=== PATIENT | male | born 1995 | race Caucasian/White ===

== ENCOUNTER 2018-08-12 12:30 | Emergency (ER) | payer MEDICAID, OTHER ==
--- NOTE | 2018-08-12 14:24 | ER Document Report ---
ED Hand/Wrist Injury - General Chief Complaint: Hand Injury Stated Complaint: HAND INJURY Time Seen by Provider: 08/12/18 14:13 Primary Care Provider: [facility] [Provider Group] - Follow up as needed Mode of Arrival: Ambulatory Information source: Patient Notes: 22-year-old male presented to ED for complaint of pain to his left hand and fifth finger. He states he hit his hand with a hammer about 2 hours before coming to the emergency room. He states he went to the [facility] first and they did a x-ray which he had a disc of. There is a fracture to the fifth metacarpal and the fifth PIP joint. TRAVEL OUTSIDE OF THE [place] IN LAST 30 DAYS: No - HPI Injury to: Hand, Small finger Onset: This afternoon Where: Home, Outdoors Timing: Still present Quality of pain: Achy, Sharp Severity: Moderate Pain Level: 4 Context: Other - Hit his hand with a hammer - Related Data Allergies/Adverse Reactions: No Known Allergies Allergy (Verified 08/12/18 12:34) Past Medical History - General Information source: Patient - Social History Smoking Status: Former Smoker Frequency of alcohol use: Social Drug Abuse: None Occupation: hazmat truck driver Lives with: Alone Family History: Reviewed & Not Pertinent Patient has suicidal ideation: No Patient has homicidal ideation: No - Past Medical History Cardiac Medical History: Reports: None Pulmonary Medical History: Reports: None EENT Medical History: Reports: None Neurological Medical History: Reports: None Endocrine Medical History: Reports: None Renal/ Medical History: Reports: None Malignancy Medical History: Reports None GI Medical History: Reports: None Musculoskeletal Medical History: Reports Hx Musculoskeletal Trauma Skin Medical History: Reports None Psychiatric Medical History: Reports: Hx Attention Deficit Hyperactivity Disorder Traumatic Medical History: Reports: Hx Fractures - Right ankle Infectious Medical History: Reports: None Past Surgical History: Reports: Hx Orthopedic Surgery - Right ankle - Immunizations Immunizations up to date: Yes Hx Diphtheria, Pertussis, Tetanus Vaccination: Yes Review of Systems - Review of Systems Constitutional: No symptoms reported EENT: No symptoms reported Cardiovascular: No symptoms reported Respiratory: No symptoms reported Gastrointestinal: No symptoms reported Genitourinary: No symptoms reported Male Genitourinary: No symptoms reported Musculoskeletal: Other - Left hand and fifth finger Skin: No symptoms reported Hematologic/Lymphatic: No symptoms reported Neurological/Psychological: No symptoms reported -: Yes All other systems reviewed and negative Physical Exam - Vital signs Vitals: Temp Pulse Resp BP Pulse Ox 98.3 F 74 16 137/75 H 97 08/12/18 12:40 08/12/18 12:40 08/12/18 12:40 08/12/18 12:40 08/12/18 12:40 Interpretation: Normal - General General appearance: Appears well, Alert - HEENT Head: Normocephalic, Atraumatic Eyes: Normal Pupils: PERRL - Respiratory Respiratory status: No respiratory distress Chest status: Nontender Breath sounds: Normal Chest palpation: Normal - Cardiovascular Rhythm: Regular Heart sounds: Normal auscultation Murmur: No - Abdominal Inspection: Normal Distension: No distension Bowel sounds: Normal Tenderness: Nontender Organomegaly: No organomegaly - Back Back: Normal, Nontender - Extremities General upper extremity: Normal color, Normal ROM, Normal temperature General lower extremity: Normal inspection, Nontender, Normal color, Normal ROM, Normal temperature, Normal weight bearing. No: Tavia's sign Hand: Tender, Ecchymosis, No evidence of human bite, No evidence of FB, Swelling. No: Abrasion, Deformity, Dislocation - Neurological Neuro grossly intact: Yes Cognition: Normal Orientation: AAOx4 Jude Coma Scale Eye Opening: Spontaneous [place] Coma Scale Verbal: Oriented [place] Coma Scale Motor: Obeys Commands Jude Coma Scale Total: 15 Speech: Normal Motor strength normal: LUE, RUE, LLE, RLE Sensory: Normal - Psychological Associated symptoms: Normal affect, Normal mood - Skin Skin Temperature: Warm Skin Moisture: Dry Skin Color: Normal Course - Re-evaluation Re-evalutation: 08/12/18 14:24 Patient had disc from x-rays from [facility]. He does have a boxer fracture as well as a fracture through the fifth PIP. Will splint with a boxer's. Patient was given instructions on elevation ice and ibuprofen. - Vital Signs Vital signs: Temp Pulse Resp BP Pulse Ox 98.3 F 76 16 111/66 100 08/12/18 12:40 08/12/18 15:06 08/12/18 15:06 08/12/18 15:06 08/12/18 15:06 Procedures - Immobilization Left Wrist Time completed: 14:20 Pre-Proc Neuro Vasc Exam: Normal Immobilizer type: Ulnar, Sling Performed by: PCT Post-Proc Neuro Vasc Exam: Normal Alignment checked and good: Yes Discharge - Discharge Clinical Impression: left 5th finger pip fracture Boxer's fracture Qualifiers: Encounter type: initial encounter Fracture type: closed Qualified Code(s): S62.339A - Displaced fracture of neck of unspecified metacarpal bone, initial encounter for closed fracture Condition: Stable Disposition: HOME, SELF-CARE Additional Instructions: Fractured Fifth Metacarpal (Boxer's) You have a fracture of the fifth metacarpal bone in the hand, often called a Boxer's Fracture. The fracture is usually caused by striking the knuckle against a hard surface -- such as hitting a wall with the fist. This fracture heals well. Some degree of angle in the fracture is perfectly acceptable, resulting in only a slightly rounder knuckle. Your physician has determined whether your fracture could benefit from "setting", and has outlined a treatment plan for you. The usual treatment is splinting for four to six weeks -- a cast is not usually necessary. At first, the injury should be elevated and ice packed. Contact the doctor at once if swelling or pain becomes severe, or if numbness develops. Splint Pending Casting Your injury can't be casted until the swelling has subsided. Therefore, a temporary splint has been placed to protect the injury. Full use of an injured area is not possible in a splint. You should follow the doctor's instructions concerning rest, ice, and elevation of the injury. Never do anything which causes pain under the splint. Keep the splint on ALL THE TIME until you return for casting. If there is unexpected severe pain, or numbness, discoloration, or swelling beyond the splint, you should return at once. You have been been provided a sling to help you keep your arm elevated while you are walking. When you are not walking your arm should be elevated above your heart. Ibuprofen Ibuprofen is an excellent, safe drug for pain control. In addition, it has potent antiinflammatory effects which are beneficial, especially in the treatment of injuries, arthritis, or tendonitis. It's best to take ibuprofen with food. Persons with ulcer disease or allergy to aspirin should notify their physician of this before taking ibuprofen. Take the medication exactly as prescribed. Don't take additional doses unless instructed to do so by your doctor. If you develop wheezing, shortness of breath, hives, faintness, stomach pain, vomiting, or dark black stools, return for re-evaluation at once. Ice & Elevation Apply ice packs frequently against the painful area. Many different schedules are recommended, such as "20 minutes on, 20 minutes off" or "one hour ice, two hours rest." If you need to work, you may need to go longer between ice treatments. You should plan to have the area ice packed AT LEAST one-fourth of the time. The ice should be applied over the wrap, tape, or splint, or over a layer of cloth -- not directly against the skin. Some ice bags have a built-in cloth and can be put directly on the skin. Your injured part should be elevated as much as possible over the next 48 hours. Try to keep the injury above the level of the heart. Avoid use of the injured area. Elevation and rest will decrease the swelling. FOLLOW-UP CARE: If you have been referred to a physician for follow-up care, call the physicians office for an appointment as you were instructed or within the next two days. If you experience worsening or a significant change in your symptoms, notify the physician immediately or return to the Emergency Department at any time for re-evaluation. Prescriptions: Hydrocodone/Acetaminophen [[place] 5-325 mg Tablet] 1 tab PO Q6HP PRN #7 tablet PRN Reason: Forms: Elevated Blood Pressure, Return to Work Referrals: [facility] [Provider Group] - Follow up as needed
[2018-08-12 15:08] VITALS: BP 111/66
== END 2018-08-12 15:08 | disposition home or self-care (01) ==
LOC: ER 12:30
DX: S62.617A Displaced fracture of proximal phalanx of left little finger, initial encounter for closed fracture (principal); S62.338A Displaced fracture of neck of other metacarpal bone, initial encounter for closed fracture; W27.8XXA Contact with other nonpowered hand tool, initial encounter; Y92.009 Unspecified place in unspecified non-institutional (private) residence as the place of occurrence of the external cause; Z87.891 Personal history of nicotine dependence
CPT/HCPCS: 99283